=== PATIENT | female | born 1960 | race Caucasian/White ===

== ENCOUNTER → 2020-02-08 14:25 | Outpatient (CLI) | payer OTHER, MEDICAID ==
[2020-02-08 14:38] LABS: HEMATOCRIT 28.4 % (36.0-48.0); HEMOGLOBIN 8.9 g/dL (12-16); MCH 32.5 pg (26.0-34.0); MCHC 31.3 g/dL (31.0-37.0); MCV 103.6 fL (80.0-100.0); MEAN PLATELET VOLUME 10.1 fL (7.4-10.4); PLATELET COUNT 209 10x3/uL (130-400); RBC 2.74 10x6/uL (4.00-5.40)
[2020-02-08 15:48] LABS: EOSINOPHILS 3 % (0-7); LYMPHOCYTES 53 % (15-50); MONOCYTES 1 % (2-11); NEUTROPHILS 43 % (40-80); PLATELET ESTIMATE NORMAL
== END | disposition home or self-care (01) ==
LOC: D.LABREF 14:25
PROVIDERS: ATTEND Family Medicine Adult Medicine
DX: C90.00 Multiple myeloma not having achieved remission (principal); E78.6 Lipoprotein deficiency; I10 Essential (primary) hypertension

== ENCOUNTER → 2020-02-15 09:24 | Outpatient (CLI) | payer OTHER, MEDICAID ==
[2020-02-15 17:07] LABS: HEMOGLOBIN 8.6 g/dL (12-16); MCH 33.7 pg (26.0-34.0); MCHC 31.9 g/dL (31.0-37.0); MCV 105.9 fL (80.0-100.0); MEAN PLATELET VOLUME 9.9 fL (7.4-10.4); PLATELET COUNT 185 10x3/uL (130-400); RBC 2.55 10x6/uL (4.00-5.40); RDW 22.1 % (11.5-14.5)
[2020-02-15 17:16] LABS: ALBUMIN 3.1 g/dL (3.4-5.0); ANION GAP 13.4 mmol/L (8-16); BILIRUBIN - TOTAL 0.24 mg/dL (0.2-1.3); CALCIUM 8.9 mg/dL (8.5-10.1); CREATININE - SERUM 0.9 mg/dL (0.6-1.3); POTASSIUM - SERUM 3.4 mmol/L (3.5-5.1); PROTEIN - SERUM 8.8 g/dL (6.4-8.2)
[2020-02-15 18:17] LABS: EOSINOPHILS 2 % (0-7); LYMPHOCYTES 67 % (15-50); MONOCYTES 1 % (2-11); NEUTROPHILS 29 % (40-80); PLATELET ESTIMATE NORMAL
[2020-02-15 20:27] LABS: WBC 1.8 10x3/uL (4.8-10.8)
== END | disposition home or self-care (01) ==
LOC: D.LABREF 09:24
PROVIDERS: ATTEND Legal Medicine
DX: C90.00 Multiple myeloma not having achieved remission (principal)

== ENCOUNTER → 2020-02-22 14:35 | Outpatient (CLI) | payer OTHER, MEDICAID ==
[2020-02-22 15:15] LABS: HEMATOCRIT 28.3 % (36.0-48.0); HEMOGLOBIN 8.8 g/dL (12-16); MCH 33.2 pg (26.0-34.0); MCHC 31.1 g/dL (31.0-37.0); MCV 106.8 fL (80.0-100.0); MEAN PLATELET VOLUME 10.7 fL (7.4-10.4); RBC 2.65 10x6/uL (4.00-5.40); RDW 21.4 % (11.5-14.5); WBC 2.1 10x3/uL (4.8-10.8)
[2020-02-22 15:16] LABS: PLATELET COUNT 223 10x3/uL (130-400)
[2020-02-22 17:36] LABS: EOSINOPHILS 10 % (0-7); LYMPHOCYTES 47 % (15-50); MONOCYTES 3 % (2-11); NEUTROPHILS 40 % (40-80); PLATELET ESTIMATE NORMAL
[2020-02-23 13:09] LABS: ALBUMIN 3.1 g/dL (3.4-5.0); BILIRUBIN - TOTAL 0.09 mg/dL (0.2-1.3); CREATININE - SERUM 0.9 mg/dL (0.6-1.3)
== END | disposition home or self-care (01) ==
LOC: D.LABREF 14:35
PROVIDERS: ATTEND Legal Medicine
DX: C90.00 Multiple myeloma not having achieved remission (principal)

== ENCOUNTER 2020-05-23 11:36 | Emergency (ER) | payer OTHER, MEDICAID ==
[~2020-05-23] VITALS: Ht 160 cm; Wt 70.9 kg
[2020-05-23 11:45] VITALS: BP 140/86; Ht 160 cm; Wt 70.9 kg
[2020-05-23] MEDS ORDERED: [UNRECOGNIZED DRUG - REMARK] (11:46)
[2020-05-23] MEDS ORDERED: ZOVIRAX800 MG PO (11:48)
[2020-05-23] MEDS ORDERED: NORVASC10 MG PO (11:48)
[2020-05-23] MEDS ORDERED: ASPIRIN81 MG PO (11:49)
[2020-05-23] MEDS ORDERED: CHLORTHALIDONE25 MG PO (11:50)
[2020-05-23] MEDS ORDERED: CHOLECALCIFEROL (11:51)
[2020-05-23] MEDS ORDERED: CYCLOPHOSPHAMIDE (11:52)
[2020-05-23] MEDS ORDERED: DECADRON4 MG PO (11:52)
[2020-05-23] MEDS ORDERED: GABAPENTIN100 MG PO (11:53)
[2020-05-23] MEDS ORDERED: LEVOFLOXACIN500 MG PO (11:53)
[2020-05-23] MEDS ORDERED: PROTONIX40 MG PO (11:53)
[2020-05-23] MEDS ORDERED: K-DUR20 MEQ PO (11:54)
[2020-05-23 12:21] LABS: BASOPHILS 0.4 % (0-2); EOSINOPHILS 1.1 % (0-7); HEMATOCRIT 25.1 % (36.0-48.0); HEMOGLOBIN 8.1 g/dL (12-16); IMMATURE GRANULOCYTES 3.6 % (0-5); LYMPHOCYTES 9.1 % (15-50); MCH 30.8 pg (26.0-34.0); MCHC 32.3 g/dL (31.0-37.0); MCV 95.4 fL (80.0-100.0); MEAN PLATELET VOLUME 10.3 fL (7.4-10.4); MONOCYTES 4.7 % (2-11); NEUTROPHILS 81.1 % (40-80); RBC 2.63 10x6/uL (4.00-5.40); RDW 20.1 % (11.5-14.5); WBC 2.7 10x3/uL (4.8-10.8)
[2020-05-23 12:24] LABS: PLATELET COUNT 52 10x3/uL (130-400)
[2020-05-23 12:35] LABS: ANION GAP 16.7 mmol/L (8-16); CALCIUM 9.4 mg/dL (8.5-10.1); CARBON DIOXIDE 23.5 mmol/L (21.0-32.0); CREATININE - SERUM 1.1 mg/dL (0.6-1.3); POTASSIUM - SERUM 3.2 mmol/L (3.5-5.1)
[2020-05-23 12:40] LABS: ALBUMIN 2.6 g/dL (3.4-5.0); BILIRUBIN - TOTAL 0.22 mg/dL (0.2-1.3); PROTEIN - SERUM 11.3 g/dL (6.4-8.2)
[2020-05-23 13:01] LABS: PLATELET ESTIMATE DECREASED
== END 2020-05-23 14:39 | disposition home or self-care (01) ==
LOC: D.ER 11:36
PROVIDERS: Emergency Medicine
DX: C90.00 Multiple myeloma not having achieved remission (principal); D63.8 Anemia in other chronic diseases classified elsewhere; I10 Essential (primary) hypertension; R53.1 Weakness

== ENCOUNTER 2021-01-09 12:11 | Inpatient (IN) | payer MEDICARE, MEDICAID ==
[~2021-01-09] VITALS: Ht 160 cm; Wt 66.8 kg
[~2021-01-09 12:11] MED LIST: ASPIRIN81 MG PO; CHLORTHALIDONE25 MG PO; CHOLECALCIFEROL; CYCLOPHOSPHAMIDE; DECADRON4 MG PO; GABAPENTIN100 MG PO; K-DUR20 MEQ PO; LEVOFLOXACIN500 MG PO; NORVASC10 MG PO; PROTONIX40 MG PO; ZOVIRAX800 MG PO; [UNRECOGNIZED DRUG - REMARK]
--- NOTE | 2021-01-09 13:33 | NUR ---
URINE SENT TO THE LAB
[2021-01-09 13:35] LABS: ANION GAP 16.2 mmol/L (8-16); CALCIUM 11.2 mg/dL (8.5-10.1); CARBON DIOXIDE 25.3 mmol/L (21.0-32.0); CREATININE - SERUM 1.2 mg/dL (0.6-1.3); POTASSIUM - SERUM 3.5 mmol/L (3.5-5.1)
[2021-01-09 13:41] LABS: ALBUMIN 2.4 g/dL (3.4-5.0); BILIRUBIN - TOTAL 0.86 mg/dL (0.2-1.3)
[2021-01-09 13:44] LABS: APTT 38.3 SECONDS (22.8-39.4); INR 1.28 (0.85-1.17); PROTIME 14.8 SECONDS (11.6-15.0)
[2021-01-09 13:48] LABS: BASOPHILS 0.7 % (0-2); EOSINOPHILS 0.7 % (0-7); HEMATOCRIT 21.3 % (36.0-48.0); IMMATURE GRANULOCYTES 12.2 % (0-5); LYMPHOCYTE ABS# 1.59 10x3/uL (1.18-3.74); LYMPHOCYTES 37.9 % (15-50); MCH 32.7 pg (26.0-34.0); MCHC 32.4 g/dL (31.0-37.0); MCV 100.9 fL (80.0-100.0); MEAN PLATELET VOLUME 10.7 fL (7.4-10.4); MONOCYTES 10.7 % (2-11); NEUTROPHIL ABS# 1.58 10x3/uL (1.56-6.13); NEUTROPHILS 37.8 % (40-80); RBC 2.11 10x6/uL (4.00-5.40); RDW 18.9 % (11.5-14.5); WBC 4.2 10x3/uL (4.8-10.8)
[2021-01-09 14:01] LABS: BILIRUBIN NEGATIVE (NEGATIVE); KETONE NEGATIVE (NEGATIVE); NITRITE NEGATIVE (NEGATIVE); UROBILINOGEN NORMAL mg/dL (< 2)
[2021-01-09 14:05] LABS: HEMOGLOBIN 6.9 g/dL (12-16); PLATELET COUNT 16 10x3/uL (130-400)
[2021-01-09 15:46] LABS: % SATURATION 113 % (15-55); IRON 129 ug/dl (35-150); TOTAL IRON BIND CAPACITY 114 ug/dl (260-445)
[2021-01-09 18:07] VITALS: BP 120/69
[2021-01-09 18:33] VITALS: BP 117/67
--- NOTE | 2021-01-09 18:35 | NUR ---
BLOOD TRANSFUSION STARTED AFTER CONSENT SIGNED AND 2ND WITNESS SIGNATURES.
--- NOTE | 2021-01-09 18:57 | NUR ---
PT TOLERATING BLOOD TRANSFUSION WELL. VITALS RECORDED ON PAPER CHARTING. TRANSFUSION PAPERWORK SENT IN CHARTING PACKET TO THE FLOOR WHEN TRANSFERRING PT TO FLOOR ROOM.
--- NOTE | 2021-01-09 19:00 | NUR ---
PT RECEIVED TO ROOM 210 VIA STRETCHER FROM ER BLOOD INFUSING TO RIGHT AC PIV. PT AMBULATED TO ROOM BED. NO DISTRESS NOTESD WILL COTNINUE TO MONITOR
--- NOTE | 2021-01-09 19:25 | NUR ---
PT UNABLE TO REPORT MEDS AND DOES NOT HAVE ANYONE AVAILANLE TO CALL J[facility]ED GERONIMO EPORTS HER CAREGIVER/FRIEND NO LONGER HELPS HER
--- NOTE | 2021-01-09 22:05 | NUR ---
unit 2 of 2 of prbc started to right AC piv, VSS pt olerating well will continue to montior
[2021-01-09 23:00] VITALS: BP 114/65
[2021-01-09 23:25] VITALS: BP 128/70
[2021-01-10] VITALS (7 sets, daily range): BP systolic 118–127; BP diastolic 67–71; Ht 160 cm; Wt 66.8 kg
--- NOTE | 2021-01-10 00:51 | NUR ---
unit 2 of 2 prbc completed VSS, pt toelrated well no distress noted, will continue to monitor
[2021-01-10 02:09] LABS: HEMATOCRIT 23.7 % (36.0-48.0); HEMOGLOBIN 7.9 g/dL (12-16)
--- NOTE | 2021-01-10 07:10 | NUR ---
Lying in bed, awake/alert/oriented, T/R self ad heriberto, cont of B/B with BRPs per self ad heriberto, c/o stabbing back pain rated 10/10, medicated as ordered (see MAR), call light/phone/water within reach, no s/s of acute distress observed.
[2021-01-10 07:20] LABS: ALBUMIN 2.1 g/dL (3.4-5.0); ANION GAP 16.2 mmol/L (8-16); BILIRUBIN - TOTAL 0.8 mg/dL (0.2-1.3); CALCIUM 10.6 mg/dL (8.5-10.1); CARBON DIOXIDE 24.4 mmol/L (21.0-32.0); MAGNESIUM - SERUM 1.7 mg/dL (1.8-2.4); PHOSPHOROUS 3.6 mg/dL (2.5-4.9); POTASSIUM - SERUM 3.6 mmol/L (3.5-5.1); PROTEIN - SERUM 11.2 g/dL (6.4-8.2)
[2021-01-10 08:05] LABS: HEMATOCRIT 24.6 % (36.0-48.0); HEMOGLOBIN 8.1 g/dL (12-16); LYMPHOCYTE ABS# 1.26 10x3/uL (1.18-3.74); MCH 30.9 pg (26.0-34.0); MCHC 32.9 g/dL (31.0-37.0); MEAN PLATELET VOLUME 11.2 fL (7.4-10.4); NEUTROPHIL ABS# 1.75 10x3/uL (1.56-6.13); RDW 21.7 % (11.5-14.5); WBC 3.7 10x3/uL (4.8-10.8)
[2021-01-10 08:06] LABS: MCV 93.9 fL (80.0-100.0); RBC 2.62 10x6/uL (4.00-5.40)
[2021-01-10 08:07] LABS: PLATELET COUNT 12 10x3/uL (130-400)
--- NOTE | 2021-01-10 08:08 | NUR ---
time study technician call Plt of 12, reported to [facility] Driscoll, waiting for orders.
--- NOTE | 2021-01-10 13:40 | NUR ---
Pt doing well, no s/s of AR observed/reported.
--- NOTE | 2021-01-10 13:49 | NUR ---
Completed Plts, alan well without s/s of AR observed/reported.
[2021-01-10 14:17] LABS: LYMPHOCYTES 21 % (15-50); MONOCYTES 7 % (2-11); NEUTROPHILS 63 % (40-80); PLATELET ESTIMATE DECREASED; PLATELET MORPHOLOGY GIANT PLTS PRESENT; ROULEAUX 1+
[2021-01-10 15:02] LABS: HEMATOCRIT 24.1 % (36.0-48.0); HEMOGLOBIN 8.1 g/dL (12-16)
[2021-01-10 20:26] LABS: HEMATOCRIT 24.1 % (36.0-48.0); HEMOGLOBIN 7.9 g/dL (12-16)
[2021-01-10] MEDS ORDERED: VITAMIN D 22000 UNIT PO (20:28)
[2021-01-10] MEDS ORDERED: ULTRAM50 MG PO (20:30)
[2021-01-10] MEDS ORDERED: FLUOROMETHOLONE5 ML EACH EYE (20:32)
--- NOTE | 2021-01-11 00:54 | NUR ---
1999--\ PT UPSET THAT SHE HASN'T GOTTEN ANY OF HER REGULAR HOME MEDICATIONS. I REVIEWED MED LIST WITH PT & UPDATED IT. NOTIFIED PROVIDER SURVIVAL SPECIALIST PT WANTS HER IV REMOVED. ENCOURAGED TO KEEP IT D/T SHE WOULD PROBABLY BE DISCHARGED IN THE MORNING
[2021-01-11 04:00] VITALS: BP 126/70; BP 126/72
--- NOTE | 2021-01-11 06:45 | NUR ---
RECIEVED BEDSIDE REPORT. PATIENT IS AWAKE AND ALERT. NO CURRENT PAIN OR DISTRESS VERBALIZED. RESP EVEN AND UNLABORED.
[2021-01-11 07:24] LABS: BASOPHILS 0.8 % (0-2); EOSINOPHILS 0.5 % (0-7); HEMATOCRIT 25.8 % (36.0-48.0); HEMOGLOBIN 8.3 g/dL (12-16); IMMATURE GRANULOCYTES 4.9 % (0-5); LYMPHOCYTE ABS# 1.33 10x3/uL (1.18-3.74); LYMPHOCYTES 36.2 % (15-50); MCH 30.6 pg (26.0-34.0); MCHC 32.2 g/dL (31.0-37.0); MCV 95.2 fL (80.0-100.0); MEAN PLATELET VOLUME 10.9 fL (7.4-10.4); MONOCYTES 8.4 % (2-11); NEUTROPHILS 49.2 % (40-80); RBC 2.71 10x6/uL (4.00-5.40); RDW 21.2 % (11.5-14.5); WBC 3.7 10x3/uL (4.8-10.8)
[2021-01-11 07:26] LABS: PLATELET COUNT 35 10x3/uL (130-400)
[2021-01-11 07:32] VITALS: BP 127/73
--- NOTE | 2021-01-11 07:37 | NUR ---
RECIEVED CRITICAL LAB O PLATELET 35, CONTACTED DR. COOK. NO NEW ORDERS.
[2021-01-11 07:39] LABS: ALBUMIN 2.2 g/dL (3.4-5.0); ANION GAP 19.9 mmol/L (8-16); BILIRUBIN - TOTAL 0.78 mg/dL (0.2-1.3); CALCIUM 10.7 mg/dL (8.5-10.1); CARBON DIOXIDE 23.4 mmol/L (21.0-32.0); CREATININE - SERUM 1.1 mg/dL (0.6-1.3); MAGNESIUM - SERUM 1.6 mg/dL (1.8-2.4); PHOSPHOROUS 3.3 mg/dL (2.5-4.9); POTASSIUM - SERUM 3.3 mmol/L (3.5-5.1); PROTEIN - SERUM 11.9 g/dL (6.4-8.2)
--- NOTE | 2021-01-11 08:10 | NUR ---
RESIDENT SITTING UP IN BED. RESPIRATIONS EVEN AND UNLABORED. LUNG SOUNDS WITH WHEEZING TO LOWER LOBES. NO COMPLAINTS OF PAIN OR DISTRESS. HEART SOUNDS REGULAR RATE AND RHYTHYM. PATIENT REFUSED NS THERAPY AT THIS TIME. PATIENT VERBALIZED CONCERN ABOUT GOING HOME SO SHE GET CHEMOTHERAPY. EXPLAINED SOON DISCHARGE ORDERS WERE RECEIVED I WOULD LET HER KNOW.
[2021-01-11 08:41] LABS: HEMATOCRIT 24.3 % (36.0-48.0)
[2021-01-11 11:52] VITALS: BP 131/83
--- NOTE | 2021-01-11 12:06 | NUR ---
I have reviewed this patient and I concur with the Shift Assessment completed by the Licensed Practical Nurse today this shift.
--- NOTE | 2021-01-11 13:05 | NUR ---
PATIENT DISCHARGED HOME, LEFT FACILITY VIA [facility] AT 1245PM
== END 2021-01-11 12:45 | disposition home or self-care (01) | DRG 809 ==
LOC: D.ER 12:11 → OBSVTIME 16:15 → D.M2 16:15
PROVIDERS: Family Medicine; Student in an Organized Health Care Education/Training Program; ADMIT Emergency Medicine; ATTEND Emergency Medicine
DX: D61.810 Antineoplastic chemotherapy induced pancytopenia (principal); C90.00 Multiple myeloma not having achieved remission; T45.1X5A Adverse effect of antineoplastic and immunosuppressive drugs, initial encounter; I10 Essential (primary) hypertension